=== PATIENT | male | born 1995 | race Caucasian/White ===

== ENCOUNTER 2021-04-23 19:32 | Emergency (ER) | payer OTHER ==
[~2021-04-23] VITALS: Ht 190.5 cm; Wt 129.3 kg
[2021-04-23 19:41] VITALS: BP 149/85
[2021-04-23] MEDS ORDERED: MOBIC15 MG PO (23:41)
[2021-04-23] MEDS ORDERED: FLEXERIL PO (23:41)
== END 2021-04-23 23:57 | disposition home or self-care (01) ==
LOC: ER 19:32
DX: M54.50 Low back pain, unspecified (principal); I10 Essential (primary) hypertension; F17.210 Nicotine dependence, cigarettes, uncomplicated; W01.0XXA Fall on same level from slipping, tripping and stumbling without subsequent striking against object, initial encounter; Y93.89 Activity, other specified; Y92.89 Other specified places as the place of occurrence of the external cause; Y99.8 Other external cause status